=== PATIENT | male | born 1975 | race Two or more races ===

== ENCOUNTER 2023-03-03 06:24 | Emergency (ER) | payer OTHER ==
[~2023-03-03] VITALS: Ht 172.7 cm; Wt 72.6 kg
[2023-03-03 08:44] LABS: HEMATOCRIT 47.3 % (39.0-48.0); HEMOGLOBIN 15.9 g/dL (13-16.00); MEAN CELL VOLUME 88.9 fL (80.0-100.00); MEAN CORPUSCULAR HEMOGLOBIN 29.8 pg (27.00-32.0); MEAN CORPUSCULAR HGB CONC 33.6 g/dl (32.0-36.0); RED BLOOD COUNT 5.32 M/uL (4.00-6.00); RED CELL DISTRIBUTION WIDTH 14.4 % (11.5-14.5)
[2023-03-03 08:49] LABS: PLATELET COUNT 117 K/uL (150-450)
== END 2023-03-03 11:50 | disposition home or self-care (01) ==
LOC: ER 06:25
PROVIDERS: General Practice
DX: B34.9 Viral infection, unspecified (principal); Z20.822 Contact with and (suspected) exposure to COVID-19

== ENCOUNTER 2023-12-27 06:52 | Day surgery (SDC) | payer OTHER ==
[2023-12-27] MEDS ORDERED: fentaNYL CITRATE 50 MCG/ML AMPUL IV PUSH ONE (11:00)
[2023-12-27] MEDS ORDERED: DIPHENHYDRAMINE HCL 50 MG/ML VIAL 1ML IV ONE (11:00)
[2023-12-27] MEDS ORDERED: MIDAZOLAM HCL 2 MG/2 ML VIAL IV ONE (11:00)
== END 2023-12-27 12:20 | disposition home or self-care (01) ==
LOC: AMB-ENDOS 06:52
PROVIDERS: ATTEND Colon & Rectal Surgery
DX: K63.5 Polyp of colon (principal); K62.5 Hemorrhage of anus and rectum

== ENCOUNTER 2024-11-29 12:50 | Emergency (ER) | payer OTHER ==
[~2024-11-29] VITALS: Ht 172.7 cm; Wt 72.6 kg
[2024-11-29] MEDS ORDERED: COZAAR25 MG PO (13:05)
[2024-11-29 14:41] LABS: BASO % 0.1 % (0.1-1.2); EOS # 0.12 (0.04-0.54); EOS % 1.7 % (0.7-7.0); LYMPH # 2.38 (1.18-3.74); LYMPH % 34.0 % (19.3-53.1); MEAN PLATELET VOLUME 11.20 fl (9.4-12.4); MONO # 0.59 (0.24-0.82); MONO % 8.4 % (4.7-12.5); NEUT # 3.83 (1.56-6.13); NEUT % 54.9 % (34.0-71.1); RED CELL DISTRIBUTION WIDTH 13.2 % (11.6-14.4)
[2024-11-29 14:58] LABS: ALT/SGPT 61.0 U/L (12-78); AST/SGOT 25.0 U/L (15-37); BILIRUBIN TOTAL 0.2 mg/dL (0.3-1.2); BUN CREA RATIO 14.0 (7.0-25.0); CREATININE SERUM 1.2 mg/dL (0.70-1.30); GFR 64.9; GLOBULINA 3.9 G/DL (2.4-3.5); GLUCOSE FASTING 109.0 mg/dL (65-100); OSMOLALITY SERUM 285.0 MOSM/KG (275-295)
[2024-11-29] MEDS ORDERED: DIPHENHYDRAMINE HCL 50 MG/ML VIAL 1ML IM STA (15:00)
[2024-11-29] MEDS ORDERED: METHYLPREDNISOLONE SOD SUCC 125 MG VIAL IV STA (15:00)
[2024-11-29 15:02] LABS: INR 1.03
[2024-11-29] MEDS ORDERED: EPINEPHRINE HCL/PF 1 MG/ML AMPUL IH ONE (15:15)
[2024-11-29] MEDS ORDERED: AMOX-CLAV 875-1 EACH PO (17:23)
== END 2024-11-29 17:27 | disposition home or self-care (01) ==
LOC: ER 12:56
PROVIDERS: General Practice
DX: R04.0 Epistaxis (principal); J32.0 Chronic maxillary sinusitis; I10 Essential (primary) hypertension; Z91.013 Allergy to seafood